=== PATIENT | female | born 1960 | race Caucasian/White ===

== ENCOUNTER 2016-08-14 09:34 | Emergency (ER) | payer SELFPAY ==
[2016-08-14 10:58] VITALS: BP 119/65
--- NOTE | 2016-08-18 08:14 | ED.ADGEN ---
Past History Past Medical History: Asthma, Other Past Surgical History: Other Alcohol Use: Rarely Drug Use: None Adult General Chief Complaint Chief Complaint cough HPI HPI Patient is a 56-year-old female presents with persistent cough the past 3 days, with difficulty sleeping at night. No fever, chills, nausea vomiting or sweats. Chest wall pain with cough, no palpitations or shortness of breath. No other acute symptoms or complaints. Review of Systems Review of Systems ROS as per HPI. Allergies Allergies Allergies Coded Allergies Type Severity Reaction Last Updated Verified Penicillins Allergy Unknown Rash 08/14/16 Yes Sulfa (Sulfonamide Antibiotics) Allergy Unknown Rash 08/14/16 Yes Tetracyclines Allergy Unknown Rash 08/14/16 Yes ibuprofen Allergy Unknown Anaphylaxis 08/14/16 Yes Physical Exam Physical Exam Constitutional: Well developed, well nourished, no acute distress, non-toxic appearance. HENT: Normocephalic, atraumatic, bilateral external ears normal, oropharynx moist, no oral exudates, nose, congestion with clear rhinorrhea. Eyes: PERRLA, EOMI, conjunctiva normal, no discharge. Neck: Normal range of motion, no tenderness, supple, no stridor. Cardiovascular:Heart rate regular rhythm, no murmur. Lungs & Thorax: Bilateral breath sounds clear to auscultation. Abdomen: Bowel sounds normal, soft, no tenderness. Skin: Warm, dry, no erythema, no rash. [] Back: No tenderness, no CVA tenderness. [] Extremities: No tenderness, no cyanosis, no clubbing, ROM intact, no edema. [] Neurologic: Alert and oriented X 3, normal motor function, normal sensory function, no focal deficits noted. [] Psychologic: Affect normal, judgement normal, mood normal. [] Current Patient Data Vital Signs Vital Signs Date Time Temp Pulse Resp B/P Pulse Ox O2 Delivery O2 Flow Rate FiO2 08/14/16 10:58 92 18 119/65 96 Room Air 08/14/16 09:34 98.6 EKG EKG [] Radiology/Procedures Radiology/Procedures [] Impressions: URI Course & Med Decision Making Course & Med Decision Making Pertinent Labs and Imaging studies reviewed. (See chart for details) [] Final Impression Final Impression [URI] Problems: Dragon Disclaimer Dragon Disclaimer This electronic medical record was generated, in whole or in part, using a voice recognition dictation system. CHRIS FOX DO Aug 18, 2016 08:14
== END 2016-08-14 10:58 | disposition home or self-care (01) ==
LOC: ER 09:34
DX: J06.9 Acute upper respiratory infection, unspecified (principal); R07.89 Other chest pain; J45.909 Unspecified asthma, uncomplicated; Z88.2 Allergy status to sulfonamides; Z88.0 Allergy status to penicillin; Z88.6 Allergy status to analgesic agent; Z88.1 Allergy status to other antibiotic agents
CPT/HCPCS: 99283